=== PATIENT | female | born 1995 | race Two or more races ===

== ENCOUNTER 2023-02-28 05:10 | Day surgery (SDC) | payer OTHER ==
[2023-02-28] MEDS ORDERED: TRAM1TAB98 PO (12:13)
[2023-02-28] MEDS ORDERED: DICLOFENAC POTA50 MG PO (12:14)
== END 2023-02-28 13:30 | disposition home or self-care (01) ==
LOC: CIR.AMB 05:10
PROVIDERS: ATTEND Obstetrics & Gynecology
DX: D27.1 Benign neoplasm of left ovary (principal); D27.0 Benign neoplasm of right ovary; Z20.822 Contact with and (suspected) exposure to COVID-19